=== PATIENT | female | born 1990 | race Two or more races ===

== ENCOUNTER 2020-02-05 09:11 | Emergency (ER) | payer BC ==
[~2020-02-05] VITALS: Ht 165.1 cm; Wt 74.2 kg
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
[2020-02-05] MEDS ORDERED: HYDROCODONE/APAP 10/325MG TABLET PO ONE (09:30)
--- NOTE | 2020-02-05 09:30 | NUR ---
xray by bedside
[2020-02-05] MEDS ORDERED: HYDROCODONE/APAP 10/325MG TABLET ONE (09:31)
--- NOTE | 2020-02-05 10:35 | NUR ---
pt provided with crutches. pt education done. pt was able to return demo
--- NOTE | 2020-02-05 10:39 | NUR ---
Patient discharged to home in stable condition. Written and verbal after care instructions given. Patient verbalizes understanding of instruction.
[2020-02-05 10:40] VITALS: BP 128/74
== END 2020-02-05 10:40 | disposition home or self-care (01) ==
LOC: ER 09:16
DX: S30.0XXA Contusion of lower back and pelvis, initial encounter (principal); M53.3 Sacrococcygeal disorders, not elsewhere classified; W18.39XA Other fall on same level, initial encounter; Y93.89 Activity, other specified; Y92.89 Other specified places as the place of occurrence of the external cause; Y99.8 Other external cause status
CPT/HCPCS: 72220-TC